=== PATIENT | male | born 1950 | race Caucasian/White ===

== ENCOUNTER 2016-09-01 09:26 | Outpatient (CLI) | payer OTHER ==
[2014-09-30 10:47] VITALS: BP 138/93
[2016-09-01 10:14] LABS: eGFR (African) > 60; eGFR (Non-African) > 60
== END 2016-09-01 09:27 ==
LOC: LAB 09:26
PROVIDERS: ATTEND Family Medicine
DX: E78.5 Hyperlipidemia, unspecified (principal); Z12.5 Encounter for screening for malignant neoplasm of prostate
CPT/HCPCS: 36415; 80053; 80061; 84153

== ENCOUNTER 2017-09-19 08:58 | Outpatient (CLI) | payer OTHER ==
[2014-09-30 10:47] VITALS: BP 138/93
[2017-09-19 09:40] LABS: eGFR (Non-African) > 60
== END 2017-09-19 09:00 ==
LOC: LAB 08:58
PROVIDERS: ATTEND Family Medicine
DX: E78.5 Hyperlipidemia, unspecified (principal); Z12.5 Encounter for screening for malignant neoplasm of prostate; R73.9 Hyperglycemia, unspecified
CPT/HCPCS: 80053; 80061; 83036; 84153

== ENCOUNTER 2017-12-15 09:10 | Outpatient (CLI) | payer OTHER ==
[2014-09-30 10:47] VITALS: BP 138/93
== END 2017-12-15 14:02 ==
LOC: LAB 09:10
PROVIDERS: ATTEND Family Medicine
DX: E78.5 Hyperlipidemia, unspecified (principal)
CPT/HCPCS: 36415; 80061

== ENCOUNTER 2018-09-15 08:10 | Outpatient (CLI) | payer OTHER ==
[2014-09-30 10:47] VITALS: BP 138/93
[2018-09-15 08:58] LABS: eGFR (Non-African) > 60
== END 2018-09-15 08:11 ==
LOC: LAB 08:10
PROVIDERS: ATTEND Family Medicine
DX: E78.5 Hyperlipidemia, unspecified (principal); E78.00 Pure hypercholesterolemia, unspecified; Z12.5 Encounter for screening for malignant neoplasm of prostate
CPT/HCPCS: 36415; 80053; 80061; 84153